=== PATIENT | male | born 1945 ===

== ENCOUNTER 2018-12-12 08:43 | Day surgery (SDC) | payer MEDICARE ==
[2018-12-12 09:29] VITALS: BMI 29.2
--- NOTE | 2018-12-12 09:33 | CP.PCM.PN ---
Subjective - Date & Time of Evaluation Date of Evaluation: 12/12/18 Time of Evaluation: 09:33 - Subjective Subjective: 73 yo male seen and evaluated in [facility] for right foot 2nd digit PIPJ arthroplasty with k -wire fixation. Patient states he has a lot of pain in his right toe after a long day of standing. Patient has exhausted all conservative methods at this time, inserts padding etc. Denies any food or drink after midnight. Denies taking blood thinners. SDenies f/n/v/sob. pmhx: none pshx: b/l bunionectomy allergies: NKFDA social hx: denies smoking or drinking alcohol. Objective - Constitutional Appears: Well, Non-toxic - Head Exam Head Exam: ATRAUMATIC, NORMOCEPHALIC - Eye Exam Eye Exam: Normal appearance - ENT Exam ENT Exam: Mucous Membranes Moist - Extremities Exam Additional comments: pedal pulses palpable, no open lesions, neuro protective sensation intact, hyperkeratotic lesion noted at the distal tip of the right second digit, flexible hammertoe - Neurological Exam Neurological Exam: Alert, Awake, Oriented x3 Assessment and Plan - Assessment and Plan (Free Text) Assessment: 73 M with no pmhx seen and evaluated in [facility] for right foot second digit PIPJ arthroplasty and release of MPJ with k-wire fixation Plan: Pt was seen and examined in [facility] Pt NPO status was confirmed All pre-op testing and clearance in chart Pt has exhausted all conservative treatment at this time and is opting for surgical intervention Pt was explained procedure and post-operative course All pt's questions were answered to satisfaction No guarantees were made Pt understands all risks, benefits and complications of procedure Pt will follow-up with Dr. Montano within 1 week of surgery
--- NOTE | 2018-12-12 09:34 | CP.SDSHP ---
Same Day Surgery H & P - History Proposed Procedure: right 2nd digit PIPJ and DIPJ arthroplasty with k-wire fixation Pre-Op Diagnosis: right second digit hammertoe - Allergies Allergies: Allergies No Known Allergies Allergy (Verified 12/10/18 16:44) - Physical Exam Vital Signs: Vital Signs 12/12/18 09:30 Temperature 98.4 F Pulse Rate 64 Respiratory 20 Rate Blood Pressure 145/81 O2 Sat by Pulse 96 Oximetry - {Optional Preform as Required} Ortho: Other (hyperkertaotic lesion on right second distal digit) - Date & Time Date: 12/12/18 Time: 12:58 Short Stay Discharge - Short Stay Discharge Admitting Diagnosis/Reason for Visit: M20.41 Disposition: HOME/ ROUTINE Additional Instructions (Diet, Activity): -Patient in good/stable condition for discharge home -Pt to resume medications per medical reconciliation -Resume regular diet -Please keep dressing clean, dry, & intact to surgical site -Use plastic bag over bandage for showering -Wear post op shoe at all times when ambulating -Call clinic if you see signs of infection (redness, swelling, malodor) -Please make an appointment to see Dr. Coles in office/clinic within 1 week for post-op check Progress Note/Discharge Note with Instructions: - Patient evaluated bedside in recovery s/p right foot 2nd digit arthroplasty of PIPJ and DIPJ withk-wire fixation - After surgical procedure patient in NAD - stable for discharge after (+) Void, (+) Appetite - Capillary refill time <3s and NVS intact. - Patient denies complaints at this time. - Post operative instructions and plan of care explained to patient at length. - Patient. acknowledges verbal understanding. - Patient stable for DC per podiatric surgery
[2018-12-12] MEDS ORDERED: Bupivacaine 0.5% Inj(30mL) IJ ONE (09:55)
[2018-12-12] MEDS ORDERED: Lidocaine 1% Inj (20ml) IJ ONE (09:55)
[2018-12-12] MEDS ORDERED: ceFAZolin 1 GM in Sodium Chloride 0.9% 100 ML IVPB ONE (09:55)
[2018-12-12] MEDS ORDERED: Sodium Chloride 0.9% 1,000 ML IV SCH (10:00)
[2018-12-12] MEDS ORDERED: Lactated Ringer's 1,000 ML IV ONE (10:10)
[2018-12-12] MEDS ORDERED: Lidocaine 1% Inj (20ml) ONE (11:29)
[2018-12-12] MEDS ORDERED: Bupivacaine 0.5% Inj(30mL) ONE (11:29)
[2018-12-12] MEDS ORDERED: Propofol 10 mg/ml Inj (20 ML) ONE (11:47)
[2018-12-12] MEDS ORDERED: Midazolam 2 MG/2 ML VIAL ONE (11:50)
--- NOTE | 2018-12-12 13:00 | PCM.SURG1 ---
Surgeon's Initial Post Op Note - Surgeon's Notes Surgeon: Dr Fran johns Substation Electrician: Nikole Porter pGY1, Vivek Dickens MS4 Type of Anesthesia: IV Sedation Anesthesia Administered By: Dr Lawrence Pre-Operative Diagnosis: righ second digit hammertoe Operative Findings: see dictation. materials: .062 k-wire, 3-0 prolene. injectibles: 20 cc of .5% marcaine and 1% lidocaine plain Post-Operative Diagnosis: same Operation Performed: right second digit PIPJ and DIPJ arthroplasty with k-wire fixation Specimen/Specimens Removed: none Estimated Blood Loss: EBL {In ML}: 2 Blood Products Given: N/A Drains Used: No Drains Post-Op Condition: Good Date of Surgery/Procedure: 12/12/18 Time of Surgery/Procedure: 13:00
[2018-12-12] MEDS ORDERED: Oxycodone/Acetaminophen 5/325 mg Tab PO PRN ×2 (13:01)
[2018-12-12] MEDS ORDERED: Dexamethasone 4 mg/1 ml IVP PRN (13:02)
[2018-12-12] MEDS ORDERED: HYDROmorphone 0.5 mg/0.5 ml ISec IVP PRN (13:02)
[2018-12-12 13:07] VITALS: RESP 18
--- NOTE | 2018-12-12 13:21 | PCM.OP ---
Operative Report - Operative Report Date of Surgery/Procedure: 12/12/18 Time of Surgery/Procedure: 13:19 Surgeon: Dr. Montano Lard Bleacher: Nikole Porter PGY1, Vivek Dickens MS4 Anesthesia/Sedation: IV sedation Pre-Operative Diagnosis: right second digit hammertoe Post-Operative Diagnosis: same Indication for Surgery: The patient is a 73 year-old male with the above diagnoses. The patient has exhausted all conservative treatment at this time and now requires surgical intervention. The patient signed the consent after careful explanation of risks, benefits, complications and alternatives for surgical procedure. No guarantees were given nor implied. NPO status was confirmed prior to taking patient to the OR. Operative Findings: The patient was brought to the operating room and placed on the operating room table in supine position. A well-padded pneumatic ankle tourniquet was placed to the patient's right ankle in a supramalleolar position. After induction of IV sedation, the patient received a total of 20 mL of 1:1 mixture of 0.5% Marcaine and 1% lidocaine plain in local block fashion to the right foot. Once local anesthesia was achieved, the right foot was then prepped and draped in usual sterile manner. Esmarch was utilized to exsanguinate the patient's right foot. Pneumatic ankle tourniquet was then inflated to 250 mmHg and procedure began. Procedure: Procedure 1: Right 2nd digit DIPJ arthroplasty Attention was then directed to the dorsal aspect of the 2nd digit of R foot where an approximately 3 cm transverse elliptical incision was made overlying the 2nd digit at the DIPJ. The incision was deepened through subcutaneous tissue with care being taken to identify and retract all vital neurovascular structures. All bleeders were cauterized and ligated as necessary. At this time, a transverse tenotomy and capsulotomy was performed to the DIPJ. The head of the middle phalanx was then freed of its capsular and ligamentous attachments. Next utilizing an oscillating saw, the head of the intermediate phalanx was resected and passed from the operative site. Procedure 2: Right 2nd digit PIPJ arthroplasty Attention was then directed to the dorsal aspect of the 2nd digit of R foot where an approximately 3 cm transverse elliptical incision was made overlying the 2nd digit at the PIPJ. The incision was deepened through subcutaneous tissue with care being taken to identify and retract all vital neurovascular structures. All bleeders were cauterized and ligated as necessary. At this time, a transverse tenotomy and capsulotomy was performed to the PIPJ. The head of the proximal phalanx was then freed of its capsular and ligamentous attachments. Next utilizing an oscillating saw, the head of the proximal phalanx was resected and passed from the operative site. The wound was then flushed with copious amount of sterile normal saline. Next, a 0.062 inch K-wire was driven in anterograde fashion through the distal phalanx exiting the distal aspect of the second digit. The K-wire was then retrograded proximally into the remaining aspect of the middle and proximal phalanges and second metatarsal Correction of the deformity was assessed at this time and noted to be excellent. Site flushed and Both incisions were reapproximated utilizing 3-0 prolene in a simple and horizontal mattress type fashion. The site was then dressed with xeroform, DSD and AKHIL Procedure/Operation Description: Right second digit arthroplasty of PIPJ and DIPJ with k-wire fixation Estimated Blood Loss: 2 Complications: none Discharge & Condition: The patient tolerated the anesthesia and procedure well and was escorted to the recovery room with vital signs stable and neurovascular status intact to the Right foot. This patient will follow up with Dr. Montano
--- NOTE | 2018-12-12 14:48 | RAD ---
Date of service: 12/12/2018 PROCEDURE: Right Foot Radiographs. HISTORY: patient in PACU COMPARISON: None. TECHNIQUE: 3 views obtained. FINDINGS: BONES: Status post osteotomy mid aspect 1st proximal phalanx. Status post osteotomy distal aspect 2nd proximal phalanx. No acute fracture. There is a pin traversing the 2nd digit. There is a fixation device across the osteotomy site of the 1st proximal phalanx. There are 2 screws traversing the 1st CMC articulation. JOINTS: Normal. SOFT TISSUES: Normal. OTHER FINDINGS: None. IMPRESSION: Osteotomy 1st proximal phalanx and 2nd proximal phalanx. Arthrodesis 1st CMC joint.
[2018-12-12 15:50] VITALS: BP 124/82; PULSE 56; TEMP 98; O2SAT 96
== END 2018-12-12 15:30 | disposition home or self-care (01) ==
LOC: H.OPSURG 08:43
PROVIDERS: ATTEND Podiatrist Foot & Ankle Surgery
DX: M20.41 Other hammer toe(s) (acquired), right foot (principal)
CPT/HCPCS: 28285; 73630; 97161; G8978; G8979; G8980; J0690; J2250; J2704; J3010; J7120